=== PATIENT | male | born 1980 | race Caucasian/White ===

== ENCOUNTER 2017-01-27 16:44 | Inpatient (IN) | payer SELFPAY ==
[~2017-01-27] VITALS: Ht 165.1 cm; Wt 56.6 kg
[2017-01-27 11:30] VITALS: BP 130/82; PULSE 75; TEMP 36.6; O2SAT 96
[2017-01-27] MEDS ORDERED: SODIUM CHLORIDE 0.9% 1000ML 1,000 ML IV STA ×2 (17:01)
[2017-01-27] MEDS ORDERED: NAPR1TAB9 PO (17:04)
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
--- NOTE | 2017-01-27 17:43 | DIAGNOSTIC IMAGING REPORT ---
CHEST ONE VIEW PORTABLE HISTORY: overdose eval for beazor COMPARISON: None. FINDINGS: The lungs are clear. Cardiac silhouette is normal in size. No pleural effusions. No pneumothorax. IMPRESSION: No acute process. Electronically signed by: Lee Mckeon M.D. 01/27/2017 5:41 PM Dictated Date/Time: 01/27/2017 5:41 PM
[2017-01-27 17:45] LABS: BASO % 0.2 %; BASO ABS # 0.02 K/uL (0-0.2); COMPLETE YES; EOS % 0.6 %; HEMATOCRIT 44.8 % (42-52); IG% 0.2 %; LYMPH % 19.7 %; LYMPH ABS # 2.41 K/uL (1.2-3.4); MEAN CORPUSCULAR HEMOGLOBIN 31.3 pg (25-34); MEAN CORPUSCULAR HGB CONC 35.9 g/dl (32-36); MEAN PLATELET VOLUME 9.9 fL (7.4-10.4); MONO % 8.5 %; NEUT % 70.8 %; PLATELET COUNT 184 K/uL (130-400); RED BLOOD COUNT 5.15 M/uL (4.7-6.1); WHITE BLOOD COUNT 12.22 K/uL (4.8-10.8)
[2017-01-27 17:48] LABS: INR 0.9 (0.9-1.1)
[2017-01-27 18:08] LABS: ALT/SGPT 13 U/L (12-78); BLOOD UREA NITROGEN 15 mg/dl (7-18); BUN/CREATININE RATIO 15.8 (10-20); CALCIUM 8.8 mg/dl (8.5-10.1); CARBON DIOXIDE 25 mmol/L (21-32); CHLORIDE 106 mmol/L (98-107); CREATININE 0.92 mg/dl (0.60-1.40); GLUCOSE 119 mg/dl (70-99); POTASSIUM 3.6 mmol/L (3.5-5.1); SODIUM 140 mmol/L (136-145)
[2017-01-27 18:19] LABS: ALB/GLOB RATIO 1.9 (0.9-2); ALKALINE PHOSPHATASE 66 U/L (45-117); AST/SGOT 16 U/L (15-37); THYROID STIMULATING HORMONE 0.308 uIu/ml (0.300-4.500)
[2017-01-27 18:22] LABS: ACETAMINOPHEN < 2 ug/ml (10-30)
[2017-01-27 18:29] LABS: URINE APPEARANCE CLEAR (CLEAR); URINE BILIRUBIN NEG (NEG); URINE COLOR DK YELLOW; URINE EPITHELIAL CELL AUTO >30 /lpf (0-5); URINE NITRITE NEG (NEG); URINE PH 7.5 (4.5-7.5); URINE SPECIFIC GRAVITY 1.031 (1.000-1.030); UROBILINOGEN NEG (NEG)
[2017-01-27 18:40] LABS: BENZODIAZEPINE, URINE NEG (NEG); COCAINE,URINE NEG (NEG); PHENCYCLIDINE, URINE NEG (NEG)
[2017-01-27 18:42] LABS: MANUAL MICROSCOPIC REQUIRED? NO; REVIEW REQ? YES
[2017-01-27 18:43] LABS: SULFASALICYLIC ACID POS (NEG)
[2017-01-27] MEDS: SODIUM CHLORIDE 0.9% 1000ML 1,000 ML IV SCH (19:03)
[2017-01-27] MEDS ORDERED: MAGNESIUM HYDROXIDE SUSP 30 ML UDC PO PRN (19:15)
[2017-01-27] MEDS ORDERED: ONDANSETRON INJ 2 MG/ML 2 ML VIAL IV PRN (19:15)
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
[2017-01-27 21:19] VITALS: BP 128/77; PULSE 71; TEMP 36.6; O2SAT 96; Ht 165.1 cm; Wt 56.6 kg
[2017-01-28] VITALS (12 sets, daily range): BP systolic 128–147; BP diastolic 76–93; PULSE 52–71; TEMP 36.6–36.9; O2SAT 96–98
[2017-01-28] MEDS: SODIUM CHLORIDE 0.9% 1000ML 1,000 ML IV SCH ×2 (05:03→14:45)
[2017-01-28 06:59] LABS: CALCIUM 7.8 mg/dl (8.5-10.1); CREATININE 0.79 mg/dl (0.60-1.40); POTASSIUM 4.1 mmol/L (3.5-5.1)
[2017-01-28 07:08] LABS: ALB/GLOB RATIO 1.3 (0.9-2)
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
--- NOTE | 2017-01-28 14:45 | Discharge Instructions ---
Discharge Instructions Date of Service Jan 29, 2017. Admission Reason for Admission: Intentional Naproxen Overdose Discharge Discharge Diagnosis / Problem: suicide gesture Discharge Goals Goal(s): Diagnostic testing Activity Recommendations Activity Limitations: as noted below (as per [facility] ) . Current Hospital Diet Patient's current hospital diet: Regular Diet Discharge Diet Recommended Diet: Regular Diet Pending Studies Studies pending at discharge: no Medical Emergencies . Who to Call and When: Medical Emergencies: If at any time you feel your situation is an emergency, please call 911 immediately. . Non-Emergent Contact Non-Emergency issues call your: Specialist (psychiatrist) Call Non-Emergent contact if: temperature is above 101 . . "Provider Documentation" section prepared by Cedrick Valdivia. . VTE Core Measure Inpt VTE Proph given/why not?: Treatment not indicated
--- NOTE | 2017-01-28 14:48 | Progress Note ---
Subjective Date of Service: Jan 28, 2017. Subjective pt says he has returned to his usual state on bodyaches from arthritis, no other complaints Problem List Medical Problems: (1) Suicidal deliberate poisoning Status: Acute Review of Systems Constitutional: No fever, No chills Cardiac: No chest pain, No edema Abdomen: No pain, No nausea, No vomiting, No diarrhea Male : No dysuria, No urinary frequency Objective Vital Signs Date Time Temp Pulse Resp B/P (MAP) Pulse Ox O2 Delivery O2 Flow Rate FiO2 01/28/17 04:11 96 Room Air 01/28/17 03:34 36.6 57 22 134/76 (95) 97 Room Air 01/28/17 00:08 96 Room Air 01/28/17 00:01 36.6 71 16 128/77 (94) 96 Room Air 01/27/17 21:19 36.6 71 16 128/77 96 Room Air 01/27/17 18:00 72 18 133/69 98 Room Air 01/27/17 17:07 84 01/27/17 16:53 36.8 98 16 139/85 95 Room Air 01/27/17 16:53 95 Room Air 01/27/17 11:30 36.6 75 22 130/82 (98) 96 Room Air Physical Exam General Appearance: WD/WN, + mild distress Eyes: PERRL, EOMI Respiratory/Chest: chest non-tender, lungs clear, normal breath sounds Cardiovascular: regular rate, rhythm, no murmur Abdomen: normal bowel sounds, non tender, soft Extremities: no pedal edema, no calf tenderness Neurologic/Psychiatric: alert, oriented x 3 Skin: normal color, warm/dry, no rash Laboratory Results Last 24 Hours Test 01/27/17 16:20 01/27/17 17:47 01/27/17 17:49 01/27/17 18:04 White Blood Count 12.22 K/uL Red Blood Count 5.15 M/uL Hemoglobin 16.1 g/dL Hematocrit 44.8 % Mean Corpuscular Volume 87.0 fL Mean Corpuscular Hemoglobin 31.3 pg Mean Corpuscular Hemoglobin Concent 35.9 g/dl Platelet Count 184 K/uL Mean Platelet Volume 9.9 fL Neutrophils (%) (Auto) 70.8 % Lymphocytes (%) (Auto) 19.7 % Monocytes (%) (Auto) 8.5 % Eosinophils (%) (Auto) 0.6 % Basophils (%) (Auto) 0.2 % Neutrophils # (Auto) 8.66 K/uL Lymphocytes # (Auto) 2.41 K/uL Monocytes # (Auto) 1.04 K/uL Eosinophils # (Auto) 0.07 K/uL Basophils # (Auto) 0.02 K/uL RDW Standard Deviation 42.2 fL RDW Coefficient of Variation 13.2 % Immature Granulocyte % (Auto) 0.2 % Immature Granulocyte # (Auto) 0.02 K/uL Prothrombin Time 10.0 SECONDS Prothromb Time International Ratio 0.9 Sodium Level 140 mmol/L Potassium Level 3.6 mmol/L Chloride Level 106 mmol/L Carbon Dioxide Level 25 mmol/L Anion Gap 9.0 mmol/L Blood Urea Nitrogen 15 mg/dl Creatinine 0.92 mg/dl Est Creatinine Clear Calc Drug Dose 82.7 ml/min Estimated GFR () 123.6 Estimated GFR (Non- 106.6 BUN/Creatinine Ratio 15.8 Random Glucose 119 mg/dl Calcium Level 8.8 mg/dl Total Bilirubin 3.9 mg/dl Direct Bilirubin < 0.1 mg/dl Aspartate Amino Transf (AST/SGOT) 16 U/L Alanine Aminotransferase (ALT/SGPT) 13 U/L Alkaline Phosphatase 66 U/L Total Protein 6.8 gm/dl Albumin 4.5 gm/dl Globulin 2.3 gm/dl Albumin/Globulin Ratio 1.9 Thyroid Stimulating Hormone (TSH) 0.308 uIu/ml Salicylates Level 2.9 mg/dl Acetaminophen Level < 2 ug/ml Ethyl Alcohol mg/dL < 3.0 mg/dl Bedside Glucose 87 mg/dl Urine Color DK YELLOW Urine Appearance CLEAR Urine pH 7.5 Urine Specific [place] 1.031 Urine Protein TRACE Urine Glucose (UA) NEG Urine Ketones NEG Urine Occult Blood NEG Urine Nitrite NEG Urine Bilirubin NEG Urine Urobilinogen NEG Urine Leukocyte Esterase NEG Urine WBC (Auto) 1-5 /hpf Urine RBC (Auto) 0-4 /hpf Urine Hyaline Casts (Auto) 1-5 /lpf Urine Epithelial Cells (Auto) >30 /lpf Urine Bacteria (Auto) NEG Urine Renal Epithelial Cells 0-5 /lpf Urine Opiates Screen NEG Urine Methadone, Qualitative NEG Urine Barbiturates NEG Urine Phencyclidine (PCP) Level NEG Ur Amphetamine/Methamphetamine NEG MDMA (Ecstasy) Screen NEG Urine Benzodiazepines Screen NEG Urine Cocaine Metabolite NEG Urine Marijuana (THC) NEG Test 01/28/17 05:55 Sodium Level 142 mmol/L Potassium Level 4.1 mmol/L Chloride Level 112 mmol/L Carbon Dioxide Level 25 mmol/L Anion Gap 5.0 mmol/L Blood Urea Nitrogen 18 mg/dl Creatinine 0.79 mg/dl Est Creatinine Clear Calc Drug Dose 102.9 ml/min Estimated GFR () 133.9 Estimated GFR (Non- 115.5 BUN/Creatinine Ratio 23.0 Random Glucose 95 mg/dl Calcium Level 7.8 mg/dl Total Bilirubin 0.6 mg/dl Aspartate Amino Transf (AST/SGOT) 16 U/L Alanine Aminotransferase (ALT/SGPT) 23 U/L Alkaline Phosphatase 52 U/L Total Protein 5.6 gm/dl Albumin 3.2 gm/dl Globulin 2.4 gm/dl Albumin/Globulin Ratio 1.3 Assessment and Plan 36 y/o M who was admitted on 01/27 for intentional overdose of aleve Overdose: Aleve, Salicylate level is only slightly elevated at 2.9 and pt is asx at this time , will not check again unless having issues with monitor or recurrence of n/v Other utox is neg Nicotine use: nicotine patch pt is agreeable to inpatient psyche treatment
--- NOTE | 2017-01-28 14:50 | Discharge Summary ---
Discharge Summary Date of Service Jan 28, 2017. Discharge Summary Admission Date: Jan 27, 2017 at 19:05 Discharge Date: Jan 29, 2017 Discharge Disposition: Acute care mental health Principal Diagnosis: suicide gesture Consultations: Dr Adamson Psychiatry consult Medication Reconciliation Discontinued Medications: Naproxen (Aleve) 220 Mg Tab 220 MG PO, TAB Discharge Exam Review of Systems: Constitutional: No fever, No chills Respiratory: No cough, No sputum Cardiovascular: No chest pain, No orthopnea Abdomen: No pain, No nausea Psychiatric: No depression symptoms, No anhedonism, No anxiety Physical Exam: General Appearance: WD/WN, + mild distress Neck: supple, no JVD Respiratory/Chest: chest non-tender, lungs clear, normal breath sounds Cardiovascular: regular rate, rhythm, no murmur Abdomen / GI: normal bowel sounds, non tender, soft Extremities: no pedal edema, normal range of motion Neurologic/Psychiatric: alert, oriented x 3 Skin: normal color, warm/dry, no rash Hospital Course 36 y/o M who was admitted on 01/27 for intentional overdose of aleve Overdose: Aleve, Salicylate level is only slightly elevated at 2.9 and pt is asx at this time , will not check again unless having issues with monitor or recurrence of n/v Other utox is neg Nicotine use: nicotine patch pt is agreeable to inpatient psyche treatment Total Time Spent: Greater than 30 minutes This includes examination of the patient, discharge planning, medication reconciliation, and communication with other providers. Discharge Instructions Please refer to the electronic Patient Visit Report (Discharge Instructions) for additional information.
[2017-01-29 03:00] VITALS: BP 132/78; PULSE 62; TEMP 36.8; O2SAT 98
[2017-01-29] MEDS: SODIUM CHLORIDE 0.9% 1000ML 1,000 ML IV SCH (04:33)
[2017-01-29 07:43] VITALS: BP 122/84; PULSE 63; TEMP 36.5; O2SAT 97
[2017-01-29 08:00] VITALS: O2SAT 97
[2017-01-29] MEDS ORDERED: NURSING VERBAL MED ORDER ONE (09:30)
[2017-01-29 11:37] VITALS: BP 129/81; PULSE 56; TEMP 36.5; O2SAT 97
--- NOTE | 2017-01-29 11:51 | Psychiatric Progress Notes ---
Psychiatric Progress Note Date of Service Jan 29, 2017. Notes Patient seen today for follow up. Reviewed initial consult completed yesterday by Dr. Adamson, reviewed chart, and saw patient with the psychiatric liaison nurse. CC: "Doing pretty good." Interval History: Patient stated that he is feeling better, denies any physical effects from his overdose, states he is eating well, ambulating independently, and remains willing for inpatient psychiatric treatment. He was hoping to be accepted to a smoking facility, but is aware that multiple referrals were made and no other facility was able to take him. He is willing to sign in voluntarily to [facility] for inpatient psychiatric treatment. He does not want to utilize nicotine patch or gum, stating that in the past they have made his cravings worse. We reviewed voluntary admission and average length of stay on the behavioral health unit, and he indicated understanding and agreement. He can be admitted as soon as the bed is available. See admission history and physical for additional information.
[2017-01-29 12:04] VITALS: O2SAT 97
[2017-01-29 12:30] VITALS: BP 129/81; PULSE 56; TEMP 36.5; O2SAT 97
== END 2017-01-29 12:49 | DRG 918 ==
LOC: C.EDB 16:46 → C.2T 19:05 → EDBEDREQ 19:21
PROVIDERS: ADMIT Family Medicine; ATTEND Internal Medicine
DX: T39.312A Poisoning by propionic acid derivatives, intentional self-harm, initial encounter (principal); F33.2 Major depressive disorder, recurrent severe without psychotic features; R45.851 Suicidal ideations; F43.10 Post-traumatic stress disorder, unspecified; X58.XXXS Exposure to other specified factors, sequela; M19.90 Unspecified osteoarthritis, unspecified site; F17.210 Nicotine dependence, cigarettes, uncomplicated; Z62.810 Personal history of physical and sexual abuse in childhood; Z91.5 Personal history of self-harm; Z65.3 Problems related to other legal circumstances; Z79.1 Long term (current) use of non-steroidal anti-inflammatories (NSAID)

== ENCOUNTER 2017-01-29 12:50 | Inpatient (IN) | payer SELFPAY ==
[~2017-01-29] VITALS: Ht 165.1 cm; Wt 56.2 kg
[2017-01-29] MEDS ORDERED: BISMUTH SUBSALICYLATE PER ML OMNICELL CHARGE PO PRN (13:30)
[2017-01-29] MEDS ORDERED: hydrOXYzine HCL 25 MG TAB PO PRN ×2 (13:30)
[2017-01-29] MEDS ORDERED: SODIUM CHLORIDE 0.65% NA SOLN 45 ML (OCEAN) PRN (13:30)
[2017-01-29] MEDS ORDERED: ACETAMINOPHEN 325 MG TAB PO PRN (13:30)
[2017-01-29] MEDS ORDERED: ALUMINUM/MAGNESIUM SUSP 30 ML UDC PO PRN (13:30)
[2017-01-29] MEDS ORDERED: MAGNESIUM HYDROXIDE SUSP 30 ML UDC PO PRN (13:30)
[2017-01-29] MEDS ORDERED: NURSING VERBAL MED ORDER ONE (13:30)
[2017-01-29 13:42] VITALS: BP 143/95; PULSE 63; Ht 165.1 cm; Wt 56.2 kg
[2017-01-30 07:05] VITALS: BP_SYST 103; BP_SYST 117; BP_DIAS 65; BP_DIAS 74; PULSE 45; PULSE 56; TEMP 36.3
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
[2017-01-30] MEDS: ESCITALOPRAM OXALATE 10 MG TAB PO SCH (22:01)
[2017-01-31 07:06] VITALS: BP_SYST 114; BP_SYST 117; BP_DIAS 66; BP_DIAS 73; PULSE 52; PULSE 54; TEMP 36.6
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
[2017-01-31] MEDS: ESCITALOPRAM OXALATE 10 MG TAB PO SCH (22:18)
[2017-02-01 06:52] VITALS: BP_SYST 111; BP_SYST 118; BP_DIAS 67; BP_DIAS 68; PULSE 59; TEMP 36.4
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
[2017-02-01] MEDS: ESCITALOPRAM OXALATE 10 MG TAB PO SCH (21:32)
[2017-02-02 06:49] VITALS: BP_SYST 119; BP_SYST 126; BP_DIAS 75; BP_DIAS 81; PULSE 51; PULSE 64; TEMP 36.9
[2017-02-02] MEDS ORDERED: LXP10 PO (09:20)
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
== END 2017-02-02 15:15 | disposition home or self-care (01) | DRG 885 ==
LOC: C.MHU 12:50
PROVIDERS: ADMIT Psychiatry & Neurology Psychiatry; ATTEND Psychiatry & Neurology Psychiatry
DX: F33.9 Major depressive disorder, recurrent, unspecified (principal); F43.10 Post-traumatic stress disorder, unspecified; T39.312A Poisoning by propionic acid derivatives, intentional self-harm, initial encounter; F17.200 Nicotine dependence, unspecified, uncomplicated